=== PATIENT | female | born 1965 | race Caucasian/White ===

== ENCOUNTER → 2017-01-17 | Outpatient (CLI) | payer BC ==
--- NOTE | 2017-01-18 10:44 | RADIOLOGY REPORT (SQ) ---
EXAM DESCRIPTION: MRI RT LOWER JOINT WITHOUT COMPLETED DATE/TIME: 01/17/2017 9:23 pm REASON FOR STUDY: Pain in right knee M25.561 PAIN IN RIGHT KNEE COMPARISON: None. TECHNIQUE: Rightknee images acquired and stored on PACS. Multiplanar images include fat sensitive s equences as T1, water sensitive sequences as FST2 or STIR, cartilage sensitive sequences as FSPD, and gradient echo sequences. LIMITATIONS: Patient motion. FINDINGS: JOINT AND BURSAE: No effusion. BONE CORTEX AND MARROW: No alteration of signal to suggest marrow replacement. No worrisome bone lesi ons. No occult fracture. ACL: Intact. No degeneration or ganglion cyst. PCL: Intact. MCL: Intact. No periligamentous edema or fluid. LCL: Intact. No periligamentous edema or fluid. MEDIAL MENISCUS: High T2 signal posterior horn extends to the articular surface in the axial plane. Signal abnormality anterior to the PCL suspicious for meniscal fragment. LATERAL MENISCUS: Intact. MEDIAL COMPARTMENT: Cartilage loss. Small osteophytes. LATERAL COMPARTMENT: Cartilage loss. Small osteophytes. PATELLA: Cartilage loss. Small osteophytes. Intact retinaculum. EXTENSOR MECHANISM: Intact. Quadriceps and patella tendons normal. SOFT TISSUES: Adjacent muscles and subcutaneous tissues normal. Normal flow void in popliteal artery and vein. OTHER: No other significant finding. IMPRESSION: 1. Horizontal tear posterior horn medial meniscus. Suspected meniscal fragment in the notch anterior to the PCL. 2. Osteoarthritis. TECHNICAL DOCUMENTATION: JOB ID: [id number] [employer]- All Rights Reserved
== END ==
LOC: RAD 19:59
PROVIDERS: ATTEND Orthopaedic Surgery
DX: M25.561 Pain in right knee (principal); M17.11 Unilateral primary osteoarthritis, right knee

== ENCOUNTER → 2017-03-08 | Outpatient (CLI) | payer BC ==
--- NOTE | 2017-03-08 16:40 | RADIOLOGY REPORT (SQ) ---
EXAM DESCRIPTION: CHEST PA/LATERAL COMPLETED DATE/TIME: 03/08/2017 4:20 pm REASON FOR STUDY: PRE OP COMPARISON: None. EXAM PARAMETERS: NUMBER OF VIEWS: two views TECHNIQUE: Digital Frontal and Lateral radiographic views of the chest acquired. RADIATION DOSE: NA LIMITATIONS: none FINDINGS: LUNGS AND PLEURA: No opacities, masses or pneumothorax. No pleural effusion. MEDIASTINUM AND HILAR STRUCTURES: No masses or contour abnormalities. HEART AND VASCULAR STRUCTURES: Heart normal size. No evidence for failure. BONES: No acute findings. HARDWARE: None in the chest. OTHER: No other significant finding. IMPRESSION: NO SIGNIFICANT RADIOGRAPHIC FINDING IN THE CHEST. TECHNICAL DOCUMENTATION: JOB ID: [id number] [employer]- All Rights Reserved
[2017-03-08 16:44] LABS: ABSOLUTE EOSINOPHILS # (AUTO) 0.1 10^3/uL (0.0-0.6); ABSOLUTE LYMPHOCYTES (AUTO) 2.2 10^3/uL (0.5-4.7); ABSOLUTE MONOCYTES (AUTO) 0.5 10^3/uL (0.1-1.4); ABSOLUTE NEUT (AUTO) 3.8 10^3/uL (1.7-8.2); BASOPHILS % (AUTO) 0.4 % (0-2); EOSINOPHILS % (AUTO) 1.8 % (0-6); HEMATOCRIT 40.6 % (36.0-47.0); HEMOGLOBIN 13.6 g/dL (12.0-15.5); HGB HCT DIFFERENCE 0.2; LYMPHOCYTES % (AUTO) 33.1 % (13-45); MEAN CORPUSCULAR HEMOGLOBIN 29.3 pg (27.0-33.4); MEAN CORPUSCULAR HGB CONC 33.6 g/dL (32.0-36.0); MEAN CORPUSCULAR VOLUME 87 fl (80-97); RED BLOOD COUNT 4.66 10^6/uL (3.72-5.28); RED CELL DISTRIBUTION WIDTH 14.1 % (11.5-14.0); SEGMENTED NEUTROPHILS % (AUTO) 57.7 % (42-78); WHITE BLOOD COUNT 6.6 10^3/uL (4.0-10.5)
--- NOTE | 2017-03-08 17:17 | EKG REPORT ---
SEVERITY:- OTHERWISE NORMAL ECG - SINUS RHYTHM LEFT AXIS DEVIATION : Confirmed by: Heather Souza MD 08-Mar-2017 17:17:27
[2017-03-08 17:22] LABS: ALANINE AMINOTRANSFERASE 32 U/L (9-52); ALBUMIN 4.4 g/dL (3.5-5.0); ALKALINE PHOSPHATASE 132 U/L (38-126); ANION GAP 14 (5-19); ASPARTATE AMINO TRANSFERASE 21 U/L (14-36); BILIRUBIN,DIRECT 0.3 mg/dL (0.0-0.4); BILIRUBIN,TOTAL 0.5 mg/dL (0.2-1.3); BLOOD UREA NITROGEN 26 mg/dL (7-20); CALCIUM 9.4 mg/dL (8.4-10.2); CARBON DIOXIDE 20 mmol/L (22-30); CHLORIDE 107 mmol/L (98-107); CREATININE RESULT 1.12 mg/dL (0.52-1.25); GLUCOSE 80 mg/dL (75-110); POTASSIUM 4.2 mmol/L (3.6-5.0); SODIUM 140.8 mmol/L (137-145); TOTAL PROTEIN 7.5 g/dL (6.3-8.2)
== END ==
LOC: OD 15:28
PROVIDERS: ATTEND Orthopaedic Surgery
DX: Z01.818 Encounter for other preprocedural examination (principal); Z11.2 Encounter for screening for other bacterial diseases; I10 Essential (primary) hypertension; J45.909 Unspecified asthma, uncomplicated
CPT/HCPCS: 36415; 71020; 80053; 85025; 87070; 93005; 93010

== ENCOUNTER 2017-03-22 15:33 | Emergency (ER) | payer BC ==
[2017-03-22] MEDS ORDERED: OXYCODONE-ACETAMINOPHEN 5-325 MG TABLET PO ONE (17:40)
[2017-03-22] MEDS ORDERED: PROMETHAZINE HCL 25 MG TABLET PO ONE (17:40)
--- NOTE | 2017-03-22 17:47 | ER Document Report ---
ED Medical Screen (RME) - General Chief Complaint: Leg Pain Stated Complaint: POST SURGICAL PAIN Time Seen by Provider: 03/22/17 17:37 Notes: Patient had surgery on her right knee for a meniscus injury and a floating loose body done last week by Dr. Oswald. She had been recovering as expected but began to note increasing pain in the right knee in the past couple of days and she has pain that goes up her right thigh and into the right buttock region. She contacted Dr. Oswald who advised her to come be checked to make sure she does not have a blood clot. Patient denies any chest pain or shortness of breath. Does not have any fevers. Has had surgery on her back for L4, L5, and L6, according to the patient's . TRAVEL OUTSIDE OF THE [place] IN LAST 30 DAYS: No - Related Data Allergies/Adverse Reactions: No Known Allergies Allergy (Unverified 03/22/17 15:46) Home Medications: Current Home Medications Diclofenac Sodium [Diclofenac Sodium] 1 tab PO DAILY 03/22/17 [History] Nitrofurantoin Macrocrystal [Macrodantin 50 mg Capsule] 1 cap PO DAILY 03/22/17 [History] Omeprazole [Omeprazole] 1 tab PO DAILY 03/22/17 [History] Oxycodone HCl/Acetaminophen [Oxycodone-Acetaminophen 5-325] 1 tab PO ASDIR PRN 03/22/17 [History] Promethazine HCl [Promethazine HCl] 1 tab PO DAILY 03/22/17 [History] Sumatriptan Succinate [Sumatriptan Succinate] 1 tab PO DAILY 03/22/17 [History] Topiramate [Topiramate] 1 tab PO ASDIR PRN 03/22/17 [History] Past Medical History - Social History Chew tobacco use (# tins/day): No Frequency of alcohol use: Occasional Drug Abuse: None Renal/ Medical History: Denies: Hx Peritoneal Dialysis Past Surgical History: Reports: Hx Section, Hx Orthopedic Surgery - right knee surgery Physical Exam - Vital signs Vitals: Temp Pulse Resp BP Pulse Ox 98.5 F 83 20 123/78 99 03/22/17 15:54 03/22/17 15:54 03/22/17 15:54 03/22/17 15:54 03/22/17 15:54 Course - Vital Signs Vital signs: Temp Pulse Resp BP Pulse Ox 97.7 F 69 16 113/61 100 03/22/17 21:53 03/22/17 21:53 03/22/17 21:53 03/22/17 21:53 03/22/17 21:53 - Laboratory Result Diagrams: 03/22/17 17:50 03/22/17 17:50 Laboratory results interpreted by me: 03/22/17 03/22/17 03/22/17 17:50 17:50 18:00 RDW 14.2 H BUN 27 H Est GFR (Non-Af Amer) 56 L Ur Leukocyte Esterase TRACE H Doctor's Discharge - Discharge Clinical Impression: Right sciatic nerve pain Condition: Good Disposition: HOME, SELF-CARE Additional Instructions: You have been seen in the Emergency Department (ED) today for back pain and right-sided sciatica. Your workup and exam have not shown any acute abnormalities and you are likely suffering from muscle strain or possible problems with your discs, but there is no treatment that will fix your symptoms at this time. Your ultrasound of your leg is normal and does not show a blood clot. Continue to use the pain medications that were prescribed by her orthopedic doctor as needed. Your also being started on gabapentin 300mg three times daily. You should also purchase a local lidocaine cream such as "aspercreme with lidocaine" and use per bottle instructions to the affected area. Apply heat to the area as often as you are able. Continue to keep active and avoid prolonged periods of bed rest. Please follow up with your doctor as soon as possible regarding today's ED visit and your back pain. Return to the ED for worsening back pain, fever, weakness or numbness of either leg, or if you develop either (1) an inability to urinate or have bowel movements, or (2) loss of your ability to control your bathroom functions (if you start having "accidents"), or if you develop other new symptoms that concern you.concern you. Prescriptions: Gabapentin [Neurontin 300 mg Capsule] 300 mg PO Q8 #90 cap Lidocaine [Lidoderm 5% (700 mg) Transdermal Patch] 1 patch TP DAILY #30 adh..patch
[2017-03-22 18:17] LABS: ABSOLUTE EOSINOPHILS # (AUTO) 0.2 10^3/uL (0.0-0.6); ABSOLUTE LYMPHOCYTES (AUTO) 2.7 10^3/uL (0.5-4.7); ABSOLUTE MONOCYTES (AUTO) 0.6 10^3/uL (0.1-1.4); ABSOLUTE NEUT (AUTO) 5.2 10^3/uL (1.7-8.2); BASOPHILS % (AUTO) 0.3 % (0-2); HEMATOCRIT 42.5 % (36.0-47.0); HEMOGLOBIN 13.9 g/dL (12.0-15.5); HGB HCT DIFFERENCE -0.8; LYMPHOCYTES % (AUTO) 31.3 % (13-45); MEAN CORPUSCULAR HEMOGLOBIN 29.2 pg (27.0-33.4); MEAN CORPUSCULAR HGB CONC 32.6 g/dL (32.0-36.0); MEAN CORPUSCULAR VOLUME 90 fl (80-97); MONOCYTES % (AUTO) 7.2 % (3-13); RED BLOOD COUNT 4.74 10^6/uL (3.72-5.28); RED CELL DISTRIBUTION WIDTH 14.2 % (11.5-14.0); SEGMENTED NEUTROPHILS % (AUTO) 59.2 % (42-78); WHITE BLOOD COUNT 8.7 10^3/uL (4.0-10.5)
[2017-03-22 18:20] LABS: APPEARANCE,URINE CLEAR; BILIRUBIN,URINE NEGATIVE (NEGATIVE); GLUCOSE, URINE NEGATIVE (NEGATIVE); KETONES,URINE NEGATIVE (NEGATIVE); LEUKOCYTE ESTERASE,URINE TRACE (NEGATIVE); NITRITE,URINE NEGATIVE (NEGATIVE); PROTEIN,URINE NEGATIVE (NEGATIVE); URINE SPECIFIC GRAVITY 1.024; UROBILINOGEN,URINE NEGATIVE mg/dL (<2.0)
[2017-03-22 18:33] LABS: ALANINE AMINOTRANSFERASE 21 U/L (9-52); ALBUMIN 4.8 g/dL (3.5-5.0); ALKALINE PHOSPHATASE 116 U/L (38-126); ANION GAP 12 (5-19); ASPARTATE AMINO TRANSFERASE 15 U/L (14-36); BILIRUBIN,DIRECT 0.3 mg/dL (0.0-0.4); BILIRUBIN,TOTAL 0.5 mg/dL (0.2-1.3); BLOOD UREA NITROGEN 27 mg/dL (7-20); CALCIUM 9.6 mg/dL (8.4-10.2); CARBON DIOXIDE 24 mmol/L (22-30); CHLORIDE 105 mmol/L (98-107); CREATININE RESULT 1.04 mg/dL (0.52-1.25); GLUCOSE 93 mg/dL (75-110); POTASSIUM 4.1 mmol/L (3.6-5.0); SODIUM 141.1 mmol/L (137-145)
--- NOTE | 2017-03-22 20:53 | RADIOLOGY REPORT (SQ) ---
EXAM DESCRIPTION: VENOUS UNILATERAL LOWER COMPLETED DATE/TIME: 03/22/2017 8:40 pm REASON FOR STUDY: Right leg pain and swellin, recent right knee surg COMPARISON: None. TECHNIQUE: Dynamic and static alexandra scale and color images acquired of the right leg venous system. S elected spectral images acquired with additional compression and augmentation maneuvers. The contrala teral common femoral vein and saphenofemoral junction were also imaged. Images stored on PACS. LIMITATIONS: None. FINDINGS: COMMON FEMORAL: Normal phasicity, compression and augmentation. No visualized echogenic ma terial on alexandra scale. No defects on color images. FEMORAL: Normal compression and augmentation. No visualized echogenic material on alexandra scale. No defe cts on color images. POPLITEAL: Normal compression, augmentation. No visualized echogenic material on alexandra scale. No defec ts on color images. CALF VESSELS: Normal compression, augmentation. No visualized echogenic material on alexandra scale. No de fects on color images. GSV and SSV: Normal compression, augmentation. No visualized echogenic material on alexandra scale. No def ects on color images. ANY DEEP VENOUS INSUFFICIENCY: Not evaluated. ANY EVIDENCE OF POPLITEAL CYST: No. OTHER: No other significant finding. CONTRALATERAL COMMON FEMORAL VEIN AND SAPHENOFEMORAL JUNCTION: Normal phasicity, compression and augmentation. No visualized echogenic material on alexandra scale. No de fects on color images. IMPRESSION: NO EVIDENCE DVT OR SVT IN THE RIGHT LEG. TECHNICAL DOCUMENTATION: JOB ID: [id number] [employer]- All Rights Reserved
[2017-03-22] MEDS ORDERED: GABAPENTIN 300 MG CAPSULE PO ONE (21:32)
[2017-03-22] MEDS ORDERED: LIDOCAINE 5% (700 MG) TRANSDERMAL ADH..PATCH TP ONE (21:32)
--- NOTE | 2017-03-22 21:38 | ER Document Report ---
ED General - General Chief Complaint: Leg Pain Stated Complaint: POST SURGICAL PAIN Time Seen by Provider: 03/22/17 17:37 Notes: Patient is a 52-year-old female status post recent knee arthroscopically who presents with 4-5 days of progressively worsening right lower extremity pain as well as right low back pain. Patient states after she awoke from anesthesia she had a dull, constant aching pain in her right back that has gotten progressively worse since that time. Denies any bowel or bladder incontinence. No urinary retention. No difficulty ambulating. States that the pain in the leg became progressively worse over the last 4 days and is described as a severe , burning, shooting pain down the lateral aspect of her right lower extremity radiating underneath her right knee. She was referred to the emergency department by her orthopedic doctor for evaluation for possible DVT as the etiology of today's pain. Denies a history of similar symptoms in the past. No history of DVTs. She has not noted any significant swelling to the right lower extremity. No fever or constitutional symptoms. She has not noted any erythema or purulent drainage from the incisional sites of the right knee. TRAVEL OUTSIDE OF THE [place] IN LAST 30 DAYS: No - Related Data Allergies/Adverse Reactions: No Known Allergies Allergy (Unverified 03/22/17 15:46) Home Medications: Current Home Medications Diclofenac Sodium [Diclofenac Sodium] 1 tab PO DAILY 03/22/17 [History] Nitrofurantoin Macrocrystal [Macrodantin 50 mg Capsule] 1 cap PO DAILY 03/22/17 [History] Omeprazole [Omeprazole] 1 tab PO DAILY 03/22/17 [History] Oxycodone HCl/Acetaminophen [Oxycodone-Acetaminophen 5-325] 1 tab PO ASDIR PRN 03/22/17 [History] Promethazine HCl [Promethazine HCl] 1 tab PO DAILY 03/22/17 [History] Sumatriptan Succinate [Sumatriptan Succinate] 1 tab PO DAILY 03/22/17 [History] Topiramate [Topiramate] 1 tab PO ASDIR PRN 03/22/17 [History] Past Medical History - General Information source: Patient - Social History Smoking Status: Never Smoker Chew tobacco use (# tins/day): No Frequency of alcohol use: Occasional Drug Abuse: None Lives with: Spouse/Significant other Family History: Reviewed & Not Pertinent Patient has suicidal ideation: No Patient has homicidal ideation: No Renal/ Medical History: Denies: Hx Peritoneal Dialysis Past Surgical History: Reports: Hx Section, Hx Orthopedic Surgery - right knee surgery Review of Systems - Review of Systems Notes: Constitutional: Negative for fever. HENT: Negative for sore throat. Eyes: Negative for visual changes. Cardiovascular: Negative for chest pain. Respiratory: Negative for shortness of breath. Gastrointestinal: Negative for abdominal pain, vomiting or diarrhea. Genitourinary: Negative for dysuria. Musculoskeletal: Positive for back pain and right lower extremity pain Skin: Negative for rash. Neurological: Negative for headaches, weakness or numbness. 10 point ROS negative except as marked above and in HPI. Physical Exam - Vital signs Vitals: Temp Pulse Resp BP Pulse Ox 98.5 F 83 20 123/78 99 03/22/17 15:54 03/22/17 15:54 03/22/17 15:54 03/22/17 15:54 03/22/17 15:54 Interpretation: Normal Notes: PHYSICAL EXAMINATION: GENERAL: Well-appearing, well-nourished and in no acute distress. HEAD: Atraumatic, normocephalic. EYES: Pupils equal round and reactive to light, extraocular movements intact, sclera anicteric, conjunctiva are normal. ENT: nares patent, oropharynx clear without exudates. Moist mucous membranes. NECK: Normal range of motion, supple without lymphadenopathy LUNGS: Breath sounds clear to auscultation bilaterally and equal. No wheezes rales or rhonchi. HEART: Regular rate and rhythm without murmurs ABDOMEN: Soft, nontender, normoactive bowel sounds. No guarding, no rebound. No masses appreciated. Back: No midline spinal tenderness, step-offs or deformities. There is pain on palpation of the muscles of the right low back next to the lumbar spine EXTREMITIES: Full flexion and extension of the right knee. Incisional sites overlying the right knee are well in appearance without evidence of erythema or purulent drainage. Positive straight leg test on the right NEUROLOGICAL: 5 out of 5 strength both distally and proximally bilateral lower extremities. 2+ patellar reflexes bilaterally. No clonus. Sensation grossly intact in the bilateral lower extremities. Patient is able to ambulate without difficulty. PSYCH: Normal mood, normal affect. SKIN: Warm, Dry, normal turgor, no rashes or lesions noted. Course - Re-evaluation Re-evalutation: 03/22/17 21:33 Patient presents with signs and symptoms most consistent with sciatic nerve root irritation on the right. Concern was for possible DVT given that patient recently had arthroscopic of the right knee. Venous ultrasound is normal without any evidence of an acute clot. Moreover, this would be inconsistent with patient having right low back pain and a history of sciatic nerve root pain in the past. The distribution of her pain is consistent with this. She has no back pain red flag symptoms including bowel or bladder incontinence, difficulty ambulating, weakness, numbness, or urinary retention. No fever or recent surgery to the back of the she does have a history of a spinal fusion in the remote past. Will start gabapentin 300 mg 3 times daily and have instructed the patient to follow-up with her primary care doctor. At this time will discharge with return precautions and follow-up recommendations. Verbal discharge instructions given a the bedside and opportunity for questions given. Medication warnings reviewed. Patient is in agreement with this plan and has verbalized understanding of return precautions and the need for primary care follow-up in the next 24-72 hours. - Vital Signs Vital signs: Temp Pulse Resp BP Pulse Ox 97.7 F 69 16 113/61 100 03/22/17 21:53 03/22/17 21:53 03/22/17 21:53 03/22/17 21:53 03/22/17 21:53 - Laboratory Result Diagrams: 03/22/17 17:50 03/22/17 17:50 Laboratory results interpreted by me: 03/22/17 03/22/17 03/22/17 17:50 17:50 18:00 RDW 14.2 H BUN 27 H Est GFR (Non-Af Amer) 56 L Ur Leukocyte Esterase TRACE H - Diagnostic Test Radiology reviewed: Reports reviewed Discharge - Discharge Clinical Impression: Right sciatic nerve pain Condition: Good Disposition: HOME, SELF-CARE Additional Instructions: You have been seen in the Emergency Department (ED) today for back pain and right-sided sciatica. Your workup and exam have not shown any acute abnormalities and you are likely suffering from muscle strain or possible problems with your discs, but there is no treatment that will fix your symptoms at this time. Your ultrasound of your leg is normal and does not show a blood clot. Continue to use the pain medications that were prescribed by her orthopedic doctor as needed. Your also being started on gabapentin 300mg three times daily. You should also purchase a local lidocaine cream such as "aspercreme with lidocaine" and use per bottle instructions to the affected area. Apply heat to the area as often as you are able. Continue to keep active and avoid prolonged periods of bed rest. Please follow up with your doctor as soon as possible regarding today's ED visit and your back pain. Return to the ED for worsening back pain, fever, weakness or numbness of either leg, or if you develop either (1) an inability to urinate or have bowel movements, or (2) loss of your ability to control your bathroom functions (if you start having "accidents"), or if you develop other new symptoms that concern you.concern you. Prescriptions: Gabapentin [Neurontin 300 mg Capsule] 300 mg PO Q8 #90 cap Lidocaine [Lidoderm 5% (700 mg) Transdermal Patch] 1 patch TP DAILY #30 adh..patch
[2017-03-22 21:56] VITALS: BP 113/61
== END 2017-03-22 22:13 | disposition home or self-care (01) ==
LOC: ER 15:33
DX: G89.18 Other acute postprocedural pain (principal); M54.41 Lumbago with sciatica, right side; Z98.890 Other specified postprocedural states; Z98.1 Arthrodesis status
CPT/HCPCS: 36415; 80053; 81001; 85025; 93971; 99284

== ENCOUNTER 2017-07-04 02:12 | Emergency (ER) | payer BC ==
[2017-07-04] MEDS ORDERED: METOCLOPRAMIDE HCL INJ/PF 10 MG/2 ML SDV IV ONE (03:11)
[2017-07-04] MEDS ORDERED: DIPHENHYDRAMINE HCL 50 MG/ML VIAL IV ONE (03:12)
[2017-07-04] MEDS ORDERED: KETOROLAC TROMETHAMINE INJ/PF 30 MG/1 ML SDV IV ONE (03:12)
[2017-07-04] MEDS ORDERED: NORMAL SALINE 1000 ML 1,000 ML IV ONE (03:12)
[2017-07-04] MEDS ORDERED: METHOCARBAMOL INJ/PF 1000 MG/10 ML SDV IV ONE (03:12)
--- NOTE | 2017-07-04 03:14 | ER Document Report ---
ED Headache - General Chief Complaint: Headache Stated Complaint: HEADACHE Time Seen by Provider: 07/04/17 03:02 Notes: Patient is a 52-year-old female comes emergency department for chief complaint of headache. She states it started yesterday, became worse today after a car ride where she was in a long conversation which was stressful. She reports pain in the back of her neck, on the right side of her head, extending around to the behind her right eye. She states it is throbbing and making her nauseated. She is light sensitive. She denies vomiting, fever, trauma. She reports history of the same, she states she has had migraines like this many times. She follows with neurology, she took sumatriptan earlier today. She also has a history of seizures, she is not medicated for seizures. Son is at bedside, drove her here. TRAVEL OUTSIDE OF THE [place] IN LAST 30 DAYS: No - Related Data Allergies/Adverse Reactions: No Known Allergies Allergy (Unverified 03/22/17 15:46) Past Medical History - General Information source: Patient - Social History Smoking Status: Never Smoker Frequency of alcohol use: None Drug Abuse: None Lives with: Family Family History: Reviewed & Not Pertinent Renal/ Medical History: Denies: Hx Peritoneal Dialysis Past Surgical History: Reports: Hx Section, Hx Orthopedic Surgery - right knee surgery Review of Systems - Review of Systems Constitutional: No symptoms reported EENT: No symptoms reported Cardiovascular: No symptoms reported Respiratory: No symptoms reported Gastrointestinal: No symptoms reported Genitourinary: No symptoms reported Female Genitourinary: No symptoms reported Musculoskeletal: See HPI Skin: No symptoms reported Hematologic/Lymphatic: No symptoms reported Neurological/Psychological: See HPI Physical Exam - Vital signs Vitals: Temp Pulse Resp BP Pulse Ox 97.9 F 65 18 157/89 H 100 07/04/17 02:20 07/04/17 02:20 07/04/17 02:20 07/04/17 02:20 07/04/17 02:20 Interpretation: Normal - General General appearance: Alert In distress: None - HEENT Head: Normocephalic, Atraumatic Eyes: Normal Conjunctiva: Normal Extraocular movements intact: Yes Eyelashes: Normal Pupils: PERRL Mouth/Lips: Normal Mucous membranes: Normal Pharynx: Normal Neck: Normal - Respiratory Respiratory status: No respiratory distress Chest status: Nontender Breath sounds: Normal. No: Decreased air movement, Wheezing Chest palpation: Normal - Cardiovascular Rhythm: Regular Heart sounds: Normal auscultation Murmur: No - Abdominal Inspection: Normal Distension: No distension Bowel sounds: Normal Tenderness: Nontender Organomegaly: No organomegaly - Back Back: Tender - Tender in the bilateral paracervical musculature, no midline tenderness, no tenderness over the back otherwise, full range of motion of all extremities, no saddle anesthesia, normal distal neurovascular exam - Extremities General upper extremity: Normal inspection, Nontender, Normal color, Normal ROM , Normal temperature General lower extremity: Normal inspection, Nontender, Normal color, Normal ROM , Normal temperature, Normal weight bearing. 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 Migraine-like symptoms reported. She does not appear to be in severe distress, no nuchal rigidity. She is squinting her eyes. After treatments symptoms completely resolved. She slept soundly, after awakening she states her headache is completely gone. She is smiling and grateful. She states she will follow-up with her neurologist, discussed return precautions. - Vital Signs Vital signs: Temp Pulse Resp BP Pulse Ox 97.9 F 65 14 153/80 H 100 07/04/17 02:20 07/04/17 02:20 07/04/17 05:01 07/04/17 05:01 07/04/17 05:01 Discharge - Discharge Clinical Impression: Headache Qualifiers: Headache type: unspecified Headache chronicity pattern: acute headache Intractability: not intractable Qualified Code(s): R51 - Headache Condition: Stable Disposition: HOME, SELF-CARE Additional Instructions: Your symptoms, examination, and response to treatment are consistent with a tension headache triggering a migraine. Follow-up with your neurologist. Continue home medications. Return to the emergency department for any concerning or worsening symptoms including vomiting, returned or severe headache, fever, or any other concerning symptoms.
[2017-07-04 05:03] VITALS: BP 153/80
== END 2017-07-04 05:48 | disposition home or self-care (01) ==
LOC: ER 02:12
DX: R51 Headache (principal); M54.9 Dorsalgia, unspecified; M54.2 Cervicalgia
CPT/HCPCS: 99283; 96375; 96365; J1200; J2800; J1885; J2765; J7030